=== PATIENT | female | born 1945 | race Caucasian/White ===

== ENCOUNTER 2018-04-14 12:08 | Emergency (ER) | payer OTHER ==
[~2018-04-14] VITALS: Ht 162.6 cm; Wt 81.6 kg
[2018-04-14 12:11] VITALS: Ht 162.6 cm; Wt 81.6 kg
[2018-04-14 13:20] LABS: BASOPHIL % 0.1 % (0-2)
[2018-04-14 13:24] LABS: PLATELET COUNT 438 x10^3mcL (130-400); RED CELL DISTRIBUTION WIDTH 21.1 % (11.5-14.5)
[2018-04-14 13:49] LABS: CALCIUM 8.6 mg/dL (8.5-10.1); CARBON DIOXIDE 28.2 mmol/L (21-32); POTASSIUM SERUM 3.5 mmol/L (3.5-5.1)
[2018-04-14 13:51] LABS: FREE T4 1.16 ng/dL (0.76-1.46); FREE THYROXINE INDEX 2.3 ug/dL (1.4-4.5); T3 TOTAL 1.02 ng/mL
[2018-04-14 13:54] LABS: ALBUMIN 3.4 g/dL (3.4-5.0); BILIRUBIN TOTAL 0.52 mg/dL (0.20-1.00)
[2018-04-14 14:21] LABS: rbc morphology (normal/abnorm) ABNORMAL (NORMAL)
[2018-04-14 14:22] LABS: ovalocyte/elliptocyte 2+
[2018-04-14 21:31] VITALS: BP 143/94
== END 2018-04-14 21:31 | disposition left against medical advice (07) ==
LOC: ED 12:08
PROVIDERS: Emergency Medicine
DX: D64.89 Other specified anemias (principal); E03.9 Hypothyroidism, unspecified; I50.9 Heart failure, unspecified
CPT/HCPCS: 83880; 84439; J7030; J7040; P9016; Q0092

== ENCOUNTER 2020-11-29 14:47 | Emergency (ER) | payer OTHER ==
[~2020-11-29] VITALS: Ht 162.6 cm; Wt 81.2 kg
[2020-11-29 15:00] VITALS: Ht 162.6 cm; Wt 81.2 kg
[2020-11-29 15:46] LABS: CALCIUM 8.4 mg/dL (8.5-10.1); CARBON DIOXIDE 27.2 mmol/L (21-32); CHLORIDE SERUM 107 mmol/L (98-107); CREATININE SERUM 1.3 mg/dL (0.6-1.0); GLUCOSE SERUM 126 mg/dL (74-106); POTASSIUM SERUM 4.6 mmol/L (3.5-5.1); SODIUM SERUM 141 mmol/L (136-145)
[2020-11-29 15:48] LABS: BASOPHIL % 0.7 % (0.2-1.3)
[2020-11-29 15:51] LABS: ALKALINE PHOSPHATASE 79 U/L (46-116); ALT/SGPT 24 U/L (14-59); AST/SGOT 17 U/L (15-37); BILIRUBIN TOTAL 0.16 mg/dL (0.20-1.00); TOTAL PROTEIN, SERUM 6.6 g/dL (6.4-8.2)
[2020-11-29 15:54] LABS: PLATELET COUNT 442 x10^3mcL (179-408); RED CELL DISTRIBUTION WIDTH 20.6 % (12.3-17.7)
[2020-11-29 16:05] LABS: rbc morphology (normal/abnorm) ABNORMAL (NORMAL)
[2020-11-29 16:06] LABS: ovalocyte/elliptocyte 1+
[2020-11-29 16:19] LABS: microscopic required? YES; urine erythrocyte 3+ (NEGATIVE)
[2020-11-30 04:18] VITALS: BP 195/87
== END 2020-11-30 02:15 | disposition left against medical advice (07) ==
LOC: ED 14:47
PROVIDERS: Specialist
DX: D64.89 Other specified anemias (principal); I50.9 Heart failure, unspecified
CPT/HCPCS: J7050; P9016